=== PATIENT | male | born 1995 | race Caucasian/White ===

== ENCOUNTER → 2018-11-07 | Outpatient (CLI) | payer OTHER, SELFPAY ==
--- NOTE | 2018-11-07 09:18 | RAD_ITS ---
STUDY: X-RAY - RIGHT KNEE REASON FOR EXAM: Male, 23 years old. Pain in the right knee. History of Harry Colbert disease. TECHNIQUE: Floor view(s) of the knee. COMPARISON: None. FINDINGS: Normal visualized distal femur. Irregular multifocal apophysis of the anterior tibial tubercle with overlying soft tissue prominence. Normal proximal tibiofibular articulation. Normal medial femorotibial compartment. Normal lateral femorotibial compartment. Normal patellofemoral articulation. There is no demonstrated joint effusion. The soft tissue structures are unremarkable. 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 No additional abnormal bone or joint findings. Electronically Signed: Li Ann MD at 20:14 EDT , Service support ,
== END | disposition home or self-care (01) ==
PROVIDERS: Family Provider Family Medicine; PCP Family Medicine; Referring Provider Family Medicine; Visit Provider Family Medicine
DX: M25.561 Pain in right knee (principal)
CPT/HCPCS: 73564

== ENCOUNTER → 2018-11-08 | Outpatient (CLI) | payer OTHER, SELFPAY ==
[2018-11-08 10:48] LABS: Anion Gap 6 (5-15); BUN 16 mg/dL (7-18); BUN/Creat Ratio 13.1 RATIO (10-20); Calcium,Total 8.9 mg/dL (8.5-10.1); Chloride 107 mmol/L (98-107); Cholesterol 182 mg/dL (200); Creatinine, Serum 1.22 mg/dL (0.70-1.30); EST Glomerular Filtration Rate 77 mL/min (>60); Est Glom Filt Rate - Afr Amer 94 mL/min (>60); Glucose 88 mg/dL (74-106); High Density Lipoprotein 57 mg/dL; Potassium 4.2 mmol/L (3.5-5.1); Sodium Level 140 mmol/L (136-145); Triglycerides 95 mg/dL; Very Low Density Lipoprotein 19 mg/dL (5-40)
== END | disposition home or self-care (01) ==
LOC: LAB 09:18
PROVIDERS: Family Provider Family Medicine; PCP Family Medicine; Referring Provider Family Medicine; Visit Provider Family Medicine
DX: Z13.220 Encounter for screening for lipoid disorders (principal)
CPT/HCPCS: 36415; 80048; 80061

== ENCOUNTER 2019-01-08 17:30 | Outpatient (RCR) | payer OTHER, SELFPAY ==
--- NOTE | 2018-11-28 11:55 | HP.PTEVAL ---
Patient's Visit Information KATE MIRELES is a 23 year old M referred to Physical Therapy by Yaya Mcgowan MD with a diagnosis of JOHANNA SCHLATTER DISEASE. Date of Evaluation: 11/27/18 Physical Therapist: Sanford Meade PT, Cert MDT, OCS - Visit Plan Frequency: 2x /Week Duration: 4 Weeks Plan: PT INTERNETIONS MODALTITIES ,FOAM ROLLING,HIP FLXORS /QUADS/,FLEXABLITY QUADS/HIP FLEXORS,ECCENTRICS QUADS ,BIKLE - Subjective Findings: This 23 y/o male presents to physical therapy with knee pain.Patient has h/o [place]-schatter disease. Patient developed knee pain about 6 months. Patient noticed more pain with squatting with weight training. Patient aggravating symptoms with stairs ,kneeling,sqautting . Patient denies parathesia/tingling. Patient sleeping okay at night. Patient pain in affects QOL and functional tasks. SOCAIL: single. HOBBIES : snowboarding ,lifting. VOCATION: [employer] - Objective POSTURE: WFL. PALAPTION: GREATER TUBERBOSITY. GAIT: reciprocal pattern. NEURO: intact. AROM: supine knee flexion 0-120 L,R 0-130 degrees. MMT: quads/hams/hip 4/5,ankle 5/5. FLEXABILITY: hams min/mod tight,quads/hip flexors mod tight - Goals Goal 1:: Pateint to be Independant with HEP Goal Time Frame: 4-6 Weeks Goal 2:: Patient decrease right knee pain by 75% or > to improve function Goal Time Frame: 4-6 Weeks Goal 3:: Patient improve flexablity quads/hip flexion mod tight to improve function Goal Time Frame: 4-6 Weeks Goal 4:: Pateint improve LFES score by 10 points > to improve fumction. Goal 5:: Patient to return working out without symptoms of pain lowerbody. Goal Time Frame: 4-6 Weeks - Rehabilitation Potential Physical Therapy Diagnosis: This patient has knee pain right with pain very tight quads/hip flexors ,unable to squat ,kneel,paifull with step affects daily activity thus benifit from skilled PT. Rehabilitation Potential: Good - Anticipated Interventions Patient/Client Instruction: Educate patient on: Condition, Plan of Care For the Purpose of:: To decrease pain, To increase ROM, To improve muscle performance and motor function, To increase tolerance to activity/condition/position, To improve ability of physical actions for home/community/work/leisure, To improve health of tissue, To decrease soft tissue restriction, To increase flexibility/ROM, To reduce risk of recurrence Therapeutic Exercise to Include: Strength training, Power training, Balance training, Flexibilty training, Active ROM Comment: HIP/KNEES For the Purpose of:: To decrease pain, To increase ROM, To improve muscle performance and motor function, To improve ability to perform ADL's, To increase tolerance to activity/condition/position, To improve ability of physical actions for home/community/work/leisure, To improve health of tissue, To decrease soft tissue restriction, To increase flexibility/ROM, To improve safety TENS: Yes IF ES: Yes Cryotherapy (ice pack, ice massage): Yes Thermo therapy (hot pack): Yes Ultrasound (thermal/non thermal): Yes For the Purpose of:: To decrease pain, To decrease swelling/inflammation, To increase ROM, To improve nutrient delivery to tissue, To improve health of tissue, To decrease soft tissue restriction Thank you for the opportunity to evaluate your patient. For Medicare and Medicare HMO plans, please review the plan of care and approve it. It will need to be FAXED BACK to us at [phone] for Medicare purposes. For Medicare only, by signing this I certify the plan of care. Please let me know if there are questions or concerns regarding this plan of care. Physician Signature: Date:
--- NOTE | 2019-04-03 13:09 | HP.PTDCNRP_ITS ---
HP - Discharge Summary (1) - Patient Information KATE MIRELES was seen in my office for initial evaluation on 11/27/18. The following Plan of Care was established for this patient: Initial Frequency: 2x /Week Initial Duration: 4 Weeks - Anticipated Interventions Patient/Client Instruction: Educate patient on: Condition, Plan of Care For the Purpose of:: To decrease pain, To increase ROM, To improve muscle perfor orquidea and motor function, To increase tolerance to activity/condition/position, To improve ability of physical actions for home/community/work/leisure, To improve health of tissue, To decrease soft tissue restriction, To increase flexibility/ROM, To reduce risk of recurrence Therapeutic Exercise to Include: Strength training, Power training, Balance training, Flexibilty training, Active ROM For the Purpose of:: To decrease pain, To increase ROM, To improve muscle performance and motor function, To improve ability to perform ADL's, To increase tolerance to activity/condition/position, To improve ability of physical actions for home/community/work/leisure, To improve health of tissue, To decrease soft tissue restriction, To increase flexibility/ROM, To improve safety TENS: Yes IF ES: Yes Cryotherapy (ice pack, ice massage): Yes Thermo therapy (hot pack): Yes Ultrasound (thermal/non thermal): Yes For the Purpose of:: To decrease pain, To decrease swelling/inflammation, To increase ROM, To improve nutrient delivery to tissue, To improve health of tissue, To decrease soft tissue restriction This patient was last seen in our office 01/08/19. Pertinent comments regarding their Physical therapy will appear below: Patient seen for PT for knee pain focus on modified program for strengthening quads/hams/hip,modalities ,foam rolling thus is d/c to home ex's at gym. At this point I will be discontinuing this patient from physical therapy. I would be happy to see this patient again in the future if found appropriate by the physician. Thank you! Sanford Meade, PT, Cert MDT, OCS
== END 2019-01-08 19:00 | disposition home or self-care (01) ==
LOC: PT 17:30
PROVIDERS: Family Provider Family Medicine; PCP Family Medicine; Referring Provider Family Medicine; Visit Provider Family Medicine
DX: M92.50 Unspecified juvenile osteochondrosis of tibia and fibula (principal)
CPT/HCPCS: 97014; 97035; 97110; 97161; G0283

== ENCOUNTER → 2020-04-27 | Outpatient (CLI) | payer OTHER, SELFPAY | END | disposition home or self-care (01) | PROVIDERS: PCP Family Medicine; Referring Provider Nurse Practitioner Adult Health; Visit Provider Nurse Practitioner Adult Health | DX: U07.1 COVID-19 (principal) | CPT/HCPCS: 87635; U0005; U0003 ==

== ENCOUNTER 2020-04-30 18:56 | Inpatient (IN) | payer OTHER, SELFPAY ==
[2020-04-30] VITALS (7 sets, daily range): BP systolic 131–141; BP diastolic 79–94; PULSE 67–77; RESP 13–20; TEMP 36.6–36.9; O2SAT 97–99; BMI 28.0; BMI 27.9
--- NOTE | 2020-04-30 19:03 | ED.RN ---
NO OLD EKGS IN MUSE
--- NOTE | 2020-04-30 19:21 | EKG12_ITS ---
Test Reason : CP Blood Pressure : / mmHG Vent. Rate : 075 BPM Atrial Rate : 075 BPM P-R Int : 136 ms QRS Dur : 100 ms QT Int : 374 ms P-R-T Axes : 024 079 029 degrees QTc Int : 417 ms Normal sinus rhythm with sinus arrhythmia Normal ECG Confirmed by ALEXANDRO ZAYAS, ANDREW ([id number]), editor managing director ANUPAMA MANJARREZ ([id number]) on 05/02/2020 12:23:25 P M Referred By: DEVEN Confirmed By:NJ MC MD
--- NOTE | 2020-04-30 19:22 | ED.VIS.GEN ---
History of Present Illness Chief Complaint: Chest Pain Narrative: 24-year-old male with no significant past medical history presents with concern for right-sided chest pain and congestion. Patient was diagnosed with coronavirus 4 days ago. Patient began having symptoms 7 days ago. States that he is mildly short of breath intermittently. States the pain is sharp in nature. Denies any nausea, vomiting, abdominal pain. Past Medical History - Allergies and Home Meds Allergies/Adverse Reactions: Allergies No Known Allergies Allergy (Verified 04/30/20 18:57) Prior records reviewed: Yes Past Medical History: None Surgical History: no surgical history Lives: With Family Smoking Status: Never smoker Alcohol: None Drugs: None Review of Systems General: Reports: Malaise. Denies: Chills, Fever, Sweats Eyes: Denies: Visual changes - bilaterally, Diplopia ENT: Denies: Rhinorrhea, Sore throat Cardiovascular: Reports: Chest pain. Denies: Palpitations Respiratory: Reports: Cough. Denies: Dyspnea, Dyspnea on exertion Gastrointestinal: Denies: Abdominal pain, Nausea, Vomiting, Diarrhea, Melena, Hematochezia Genitourinary: Denies: Dysuria, Hematuria, Frequency Musculoskeletal: Denies: Back pain, Extremity Pain Skin: Denies: Rash, Wounds Neurological: Denies: Headache, Weakness, Numbness Physical Exam Vital Signs/Narrative: Vital Signs Temp Pulse Resp BP Pulse Ox 04/30/20 18:57 98.3 F 72 20 H 139/91 H 97 Inital Vital Signs reviewed: Yes General: Well nourished, Well developed, No Acute Distress Head: Normocephalic, Atraumatic Eyes: Perrl, EOMI ENT: Moist mucous membranes, No rhinorrhea Neck: Supple, Nontender Cardiovascular: Regular rate, Regular rhythm, No murmurs Respiratory: No distress, CTA bilaterally, Chest nontender Abdomen: Soft, Nontender, Nondistended, Normal bowel sounds Back: Nontender, Normal Inspection Extremities: Nontender, No edema Skin: Normal color, No rash Neurological: Alert, Oriented x3, Cranial nerves II-XII grossly intact, Normal Strength, Normal Sensation Psychological: Normal affect, Normal Mood Diagnostic/Tx/Re-eval Chest X-Ray - ED: 1 View, Read by ED Physician, Read by Radiologist, - - Right pneumothorax. Clinical Impression(s) from Imaging Studies Chest X-Ray 04/30/20 19:28 IMPRESSION: 1. Moderate right pneumothorax, no tension. 2. Possibly viral pneumonia and/or atelectasis in the bases. Electronically Signed: Martha Barnett MD at 19:48 EST Tel , Service support , ADDENDUM: 04/30/202005 IMPRESSION: 1. Moderate right pneumothorax, no tension. 2. Possibly viral pneumonia and/or atelectasis in the bases. N.B. : The above information has been verbally conveyed by Martha Barnett MD to Dr Sukhdev MD, on 04/30/2020 19:59:57 (ET). Electronically Signed: Martha Barnett MD at 19:48 EST Tel , Service support , - Rhythm Strip Rhythm Strip: Sinus Rhythm Rate: 75 Ectopy: None - EKG Initial EKG Interpretation: Sinus Rhythm - Normal sinus rhythm at 75 bpm. [place] interval of 136 ms. QTC of 417 ms. No evidence of ST elevation or depression at this time. - Medical Decision Making Patient appears well and nontoxic. Vital signs within normal limits. No tachycardia or hypoxemia. EKG nonischemic. Chest x-ray shows evidence of right pneumothorax. Patient had 8 Setswana pigtail chest tube placed in the right chest. This was done using Seldinger technique. This was done under sterile conditions. Patient tolerated procedure well. Locally anesthetized with 1% lidocaine without epinephrine. Chest x-ray confirms placement. Patient's initial checks x-ray shows a worsened right pneumothorax. The chest tube was then placed to suction. Repeat chest x-ray shows improving right pneumothorax. Spoke with surgeon Dr. Barnes who is agreeable with admitting the patient with a hospitalist consult. Patient stable at time of admission. Impression: 1. Right pneumothorax 2. COVID 19 Procedures Procedure(s): Right chest thoracostomy. ED Disposition - Plan for ED Patient: Disposition: Acute Care [facility]
--- NOTE | 2020-04-30 19:28 | RAD_ITS ---
We are attempting to reach an attending provider to discuss findings. An addendum with communication details will be sent when the communication is complete. STUDY: X-RAY CHEST REASON FOR EXAM: Male, 24 years old. COVID +, SYMPTOMS STARTED SATURDAY. TODAY C/O SOB, CHEST PAIN. TECHNIQUE: Frontal view of the chest COMPARISON: None. FINDINGS: There is a moderate right pneumothorax with approximately visually estimated volume of 25%. Uncalibrated measurement of the pleural separation line in the apex is 3.8 cm. There is no tension. Left lung is fully inflated. There is mild lower lung opacity, possibly atelectasis versus mild viral pneumonia. There are no pleural effusions, cardiomegaly or pulmonary edema. RAD/Chest 1 View (Portable) IMPRESSION: 1. Moderate right pneumothorax, no tension. 2. Possibly viral pneumonia and/or atelectasis in the bases. Electronically Signed: Martha Barnett MD at 19:48 EST Tel , Service support ,
[2020-04-30] MEDS: fentaNYL 100 MCG/2 ML Ampul IV (20:27)
--- NOTE | 2020-04-30 21:06 | RAD_ITS ---
STUDY: X-RAY CHEST REASON FOR EXAM: Male, 24 years old. CHEST TUBE PLACEMENT. POSITIVE COVID. TECHNIQUE: Single AP portable view of the chest. COMPARISON: Earlier today FINDINGS: Despite the presence of a small caliber right-sided chest tube, the previously noted right pneumothorax is increased in size and now affects approximately 40% of the right hemithorax. There is no mediastinal shift. EKG leads overlie the chest The left lung is clear and expanded. There is no demonstrated pleural abnormality. Normal size heart. Normal mediastinum and umm. Normal visualized pulmonary arteries. Normal visualized aortic arch and descending thoracic aorta. Normal visualized thoracic spine. Normal visualized ribs, clavicles, and shoulders. There is no demonstrated abnormality of the visualized soft tissue structures of the upper abdomen. RAD/Chest 1 View (Portable) IMPRESSION: Despite the presence of a small caliber right-sided chest tube, a previously noted right pneumothorax is increased in size since the previous study. N.B. : The above information has been verbally conveyed by Wicho Hill MD to FLAVIO Blake MD, on 04/30/2020 21:18:38 (ET). Electronically Signed: Wicho Hill MD at 21:19 EST , Service support ,
--- NOTE | 2020-04-30 21:19 | CON.PCM_ITS ---
Reason for Consult Date of Consultation: 04/30/20 Reason for Consultation: medical management for covid History of Present Illness: The patient is a 24 year old M with no signficant PMH who was admitted via the ED on 04/30/2020 with a complaint of right sided chest pain. He was diagnosed with COVID 19 infection 4 days prior to admission, after he started having symptoms 7 days prior to admission. He complained of intermittent shortness of breath and had been coughing profusely. Chest pain was sharp in nature, aggravated by breathing in and out. He had no aggravating or relieving factors. Review of systems were otherwise negative. Vitals were stable, and EKG showed sinus rhythm with rate of 75bpm. CXR done showed a moderate right sided pneumothorax, with left lung being fully inflated, with mild lower lung opacity, possibley atelectasis vs mild viral pneumonia. He had a chest tube passed in the ED, and he was admitted to the surgical service. Hospitalist service was consulted to help with management of COVID.[] Past Medical History Allergies No Known Allergies Allergy (Verified 04/30/20 18:57) Home Medications: Ambulatory Orders Medication Instructions Recorded NK 04/30/20 Surgical History: no surgical history Psychiatric History: No pertinent psych hx Lives: With Family Smoking Status: Never smoker Alcohol: None Drugs: None Review of Systems Constitutional: Denies: Chills, Fever, Malaise, Weakness, Weight Change HEENT: Denies: Head Aches, Sinus Congestion, Sinus Drainage Cardiovascular: Denies: Chest Pressure, Chest Tightness, Edema, Heaviness, Light Headedness, Orthopnea, Palpitations, Paroxysmal Noc. Dyspnea Respiratory: Reports: Shortness of Breath, Shortness of breath at rest, Shortness of breath upon exertion. Denies: Cough, Sputum production Gastrointestinal: Denies: Abdominal Pain, Nausea, Vomiting Genitourinary: Denies: Dysuria Musculoskeletal: Denies: Joint Pain, Joint Tenderness Skin: Denies: Rash, Wounds Neurological: Denies: Numbness, Tingling, Focal weakness Psychiatric: Denies: Anxiety, Depression, Homicidal Ideations, Suicidal Ideations Hematologic/ Lymphatic: Denies: Easy Bruising, Easy Bleeding - Physical Exam Vitals/I&O's: Vital Signs Temp Pulse Resp BP Pulse Ox 98.3 F 67 16 139/94 H 99 04/30/20 18:57 04/30/20 21:07 04/30/20 21:07 04/30/20 21:07 04/30/20 21:07 Oxygen Delivery Method Room Air Weight: 200 lb 13.458 oz Body Mass Index (BMI) 28.0 General: Alert, Oriented x3, Cooperative, No apparent distress HEENT: Atraumatic, PERRLA, EOMI, Normocephalic Oral: Moist Mucosa Neck: Supple, No JVD, Negative Carotid Bruits Lungs: - - breath sounds diminished on the right side. has a right sided pigtail chest tube. Cardiovascular: Regular rate, Regular Rhythm, Normal S1, Normal S2, No murmurs Abdomen: Bowel Sounds Present, Soft, Non Tender, Non-Distended, No Hepato- splenomegaly Extremities: No edema, Capillary Refill Less than 3 Seconds Skin: No rashes, No breakdown Musculoskeletal: No Tenderness to Palpation of Joints or Extremities Lymphatic: No Cervical, Supraclavicular, or Inguinal Adenopathy Neurological: Cranial nerves II-XII grossly intact, Neuro grossly intact, Motor Exam 5/5 strength throughout Psych/Mental Status: Normal Affect, Appropriate, Alert and oriented to time, place, person, mood and affect Assessment/Plan 24 y/o admitted with a complaint of right sided chest pain #RIght sided pneumothorax due to COVID 19 infection * Patient being admitted to surgical service. * Repeat chest x-ray after he had a chest tube placed showed worsening of pneumothorax. However chest tube was not hooked up to suction then and so chest x-ray be repeated after it looked up to suction. * management as per general surgery, the primary service * #COVID 19 infection * says he was diagnosed 4 days ago, though he started having symptoms 7 days ago. * hes currently on room air * will hold off on remdesivir as he is on room air * start on PO decadrone 6mg daily * D dimer was only 0.27 * DVT prophylaxis: lovenox. Thank you for the courtesy of the consult. We will continue to follow with you. Office Visits / Consults: [id number] OP Consult L4
--- NOTE | 2020-04-30 21:30 | RAD_ITS ---
STUDY: X-RAY CHEST REASON FOR EXAM: Male, 24 years old. Shortness of breath, chest tube placement TECHNIQUE: Single AP portable view of the chest. COMPARISON: Earlier today FINDINGS: EKG leads overlie the chest. A previously noted small caliber chest tube in the right hemithorax has been adjusted in position and attached to suction The previously noted right pneumothorax has improved but not yet resolved. Affects approximately 20% of the right hemithorax without mediastinal shift is approximately 3.6 cm of space between the superior edge of the lung and the pleural surface on the previous examination measured 5.6 cm. The left lung is clear and expanded. There is no demonstrated pleural abnormality. Normal size heart. Normal mediastinum and umm. Normal visualized pulmonary arteries. Normal visualized aortic arch and descending thoracic aorta. Normal visualized thoracic spine. Normal visualized ribs, clavicles, and shoulders. There is no demonstrated abnormality of the visualized soft tissue structures of the upper abdomen. RAD/Chest 1 View (Portable) IMPRESSION: Persistent though decreased in size right pneumothorax Electronically Signed: Wicho Hill MD at 21:53 EST , Service support ,
--- NOTE | 2020-04-30 22:38 | PCS.PANDOC ---
PANDEMIC DOCUMENTATION INITIATED: Date: 04/30/20 Time: [id number]
[2020-04-30] MEDS: Acetaminophen 325 MG Tablet 650 MG PO (23:02)
[2020-04-30] MEDS: dexAMETHasone 4 MG Tablet 6 MG PO (23:33)
--- NOTE | 2020-04-30 23:52 | PCM.HP.BLA ---
History and Physical Date of Admission: 04/30/20 Chief Complaint: shortness of breath, cough, COVID positive History of Present Illness: 24 y/o healthy, pleasant WM presents with right pneumothorax. He is known to be COVID positive, has some shortness of breath with this.. Has had cough and then developed chest pain. Presented to ED and found to have right pneumothorax. Past Medical History: denies major medical illnesses Past Surgical History: denies Medications: denies chronic medications Allergies: Has no known drug allergies Social history: TOB use denies Review of Systems: General - denies fevers, has increased tiredness, denies anorexia Cardiovascular has chest pain due to pneumo, denies history of heart attack, Pulmonary see HPI Gastrointestinal denies blood in stools, denies swallowing problems Neurological denies numbness/weakness of extremities, denies seizures Genitourinary denies burning with urination, denies blood in urine Hematological denies spontaneous/prolonged bleeding Skin denies open non healing wounds Musculoskeletal no new muscle/bone pain Endocrine denies diabetes or thyroid problems Psychological denies suicidal ideation, denies hallucinations Physical examination: Vital signs Temp 98.7F HR 70 BP 135/91 RR 20 General WD/WN WM in no apparent distress, alert and oriented, not septic appearing HEENT Normocephalic. EOM intact with sclera clear and no icterus noted. Neck is supple with no jugular venous distention noted. Trachea is midline. Lungs normal respiratory excursion. No labored breathing noted, such as retractions. No cough heard. Heart regular. Abdomen soft and benign. Extremities no pitting edema noted. No obvious deformity noted. Genitourinary/Rectal deferred Skin normal skin integrity. Neurological non focal. Psychological normal affect, patient is calm and appropriate Impression: right pneumothorax, COVID positive Discussion/Plan: Will maintain thoracostomy catheter. Set Atrium device to 20 cm water pressure. Encourage incentive spirometry. Supplemental oxygen to aid in resorption of pneumothorax Pain medications as needed. Will check serial CXR until resolution Consult to internal medicine for assistance in treatment of COVID I have discussed the above with the patient. He acknowledges the above I have answered all questions to the patient?s satisfaction and the patient has no further questions.
[2020-05-01 00:03] LABS: Absolute Neutrophil Count 2.8 X10^3/uL (2.0-7.7); Basophil# 0.02 X10^3/uL; Basophil% 0.3 % (0-1); Eosinophil# 0.19 X10^3/uL; Eosinophils% 3.3 % (0-5); Hematocrit 50.2 % (40-54); Hemoglobin 16.7 g/dL (13.0-16.5); Lymphocyte % 36.3 % (19-41); Mean Corp Hgb Conc 33.3 g/dL (32-36); Mean Corpuscular Volume 87.3 fL (80-94); Mean Platelet Vol. 10.7 fl (6.2-12.0); Monocyte# 0.63 X10^3/uL; Monocyte% 10.9 % (0-10); NRBC Flagged by Analyzer 0 % (0-5); Neutrophil # 2.79 X10^3/uL (2.7-7.7); Neutrophil % 48.3 % (47-70); Platelet Count 191 K/mm3 (150-450); RBC Distribution Width CV 12.1 % (11.6-14.6); RBC Distribution Width SD 39.4 fl (35.1-43.9); Red Blood Count 5.75 M/mm3 (4.6-6.2); White Blood Count 5.8 K/mm3 (4.4-11.0)
[2020-05-01 00:22] LABS: Anion Gap 4 (5-15); BUN 10 mg/dL (7-18); BUN/Creat Ratio 8.5 RATIO (10-20); Calcium,Total 8.9 mg/dL (8.5-10.1); Chloride 102 mmol/L (98-107); Creatinine, Serum 1.17 mg/dL (0.70-1.30); EST Glomerular Filtration Rate 80 mL/min (>60); Est Glom Filt Rate - Afr Amer 97 mL/min (>60); Glucose 111 mg/dL (74-106); Sodium Level 137 mmol/L (136-145)
[2020-05-01 00:32] LABS: Procalcitonin 0.05 ng/mL (0.00-0.09)
[2020-05-01 02:20] LABS: D-Dimer Quantitative (DVT/PE) < 0.27 FEU/ug/m (0.27-0.49)
[2020-05-01 03:44] LABS: CRP < 2.90 mg/L (0.0-3.0); LDH 192 U/L (87-241)
[2020-05-01 04:17] VITALS: BP 123/63; PULSE 69; RESP 18; TEMP 36.6; O2SAT 99
--- NOTE | 2020-05-01 05:55 | RAD_ITS ---
STUDY: X-RAY CHEST REASON FOR EXAM: Male, 24 years old patient presents for follow-up of a pneumothorax. Patient is COVID positive. TECHNIQUE: Single AP portable view of the chest. COMPARISON: 04/30/2020. FINDINGS: Small caliber thoracostomy tube is visible on the right. The lungs are clear and expanded. There is decreased size of the right-sided pneumothorax with estimated size now approximately 12 mm. Normal size heart. Normal mediastinum and umm. Normal visualized pulmonary arteries. Normal visualized aortic arch and descending thoracic aorta. Normal visualized thoracic spine. Normal visualized ribs, clavicles, and shoulders. There is no demonstrated abnormality of the visualized soft tissue structures of the upper abdomen. RAD/Chest 1 View (Portable) IMPRESSION: Decreased size of the right-sided pneumothorax. Electronically Signed: Terrie Waters MD at 8:06 EST , Service support ,
--- NOTE | 2020-05-01 07:15 | PCM.PN.HOSP ---
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 Patient admitted to the medical surgical Covid floor, chest tube placed per ED with serial follow-up lung plain films with ongoing improvement following initiation of continued suction, general surgery primary motors and per their report we will plan potentially repeat film AM and if improving possible transition to waterseal, encourage ambulation while still preserving appropriate chest tube placement, encourage incentive spirometry, maintained on 2 L nasal cannula given this presentation, as needed pain regimen per surgery discretion. Most recent follow-up chest x-ray this afternoon with decreasing size of the right-sided pneumothoraces. CBC unremarkable, d-dimer < 0.027, BMP with glucose 111, LDH 192, CRP < 2.90, procalcitonin 0.05, admission CXR with moderate right sided PTX with no tension, evidence COVID PNA findings. Will maintain on oxygen with wean as tolerated to room air, PRN albuterol, HOB, IS parameters, judicious hydration, closely monitor for worsening status for ARDS and multiorgan failure, continued on oral decadron x 10 doses initiated upon patient admission, given status deferred remdesivir. SCDs, Lovenox given #2 as increased clotting risk, D-dimer normal currently, given history may benefit at discharge from consideration daily baby aspirin. Patient overnight with improvement since initial presentation, less dyspnea and less and pleuritic pain although he still does have some with deep inspiratory effort and notes also right-sided back discomfort. He said he has felt the sensation of a bubbling to the right side of his chest as his lung reexpanded. Patient currently on 20 cm suction. Discussed plan of care with patient with reevaluation per general surgery with repeat chest x-ray in a.m. and if further improvement planned likely waterseal transition. Discussed patient current presentation, living with his family and given timeline recommended continued caution with strong recommendation to appropriately maintain these parameters as patient did note he had an upcoming ski trip with the following Saturday. Patient denies fevers, chills, nausea, emesis, abdominal pain. Objective: Physical Examination: General: awake, alert, oriented x 3 and cooperative, seated upright in the [facility] surgical bed, mildly fatigued otherwise no acute distress, notes discomfort to the right side of the chest has improved. Skin: normal color, turgor, no icterus, cyanosis. HEENT: AT/NC, EOMI, PERRLA, MMM. Lungs: Diminished breath sounds, greater bases, moderate effort, right-sided chest tube in place to suction, no rales, ronchi or wheezing. Heart: Regular rate and rhythm; no gallop, rub audible. Abdomen: soft, NTTP, ND, normal BS. Extremities: no cyanosis, clubbing, or edema. Neurological: patient awake, alert, oriented x 3; cognitive function intact; pupils equally reactive to light and accomodation; cranial nerves II-XII grossly normal, moving all 4 extremities, no focal deficits, strength mildly to moderately global decrease secondary to acute presentation and presence of chest tube to the right side. Psychiatric: affect appears Benji otherwise normal, no acute evidence of depressive or anxiety feelings. Vitals/I&O's: Vital Signs Temp Pulse Resp BP Pulse Ox 97.8 F 69 18 123/63 H 99 05/01/20 04:17 05/01/20 04:17 05/01/20 04:17 05/01/20 04:17 05/01/20 04:17 Oxygen Flow Rate (L/min) 2 Oxygen Delivery Method Nasal Cannula Weight: 200 lb 9.93 oz Body Mass Index (BMI) 27.9 Intake and Output for Last 24 Hours 04/29/20 04/30/20 05/01/20 23:59 23:59 23:59 Intake Total 120 / 120 240 / 240 Balance 120 / 120 240 / 240 Laboratory Results 04/30/20 23:50: D-Dimer Quant (PE/DVT) < 0.27 L 04/30/20 23:50: Lactate Dehydrogenase 192, C-React Prot Ext Range < 2.90 04/30/20 23:50: Procalcitonin 0.05 04/30/20 23:50: WBC 5.8, RBC 5.75, Hgb 16.7 H, Hct 50.2, MCV 87.3, MCH 29.0, MCHC 33.3, RDW Std Deviation 39.4, RDW Coeff of Carmen 12.1, Plt Count 191, MPV 10.7, Immature Gran % (Auto) 0.900, Neut % (Auto) 48.3, Lymph % (Auto) 36.3, [place] % (Auto) 10.9 H, Eos % (Auto) 3.3, Baso % (Auto) 0.3, Absolute Neuts (auto) 2.8, Absolute Lymphs (auto) 2.10, Nucleated RBC % 0 04/30/20 23:50: Sodium 137, Potassium 4.0, Chloride 102, Carbon Dioxide 31.0, Anion Gap 4 L, BUN 10, Creatinine 1.17, Estim Creat Clear Calc 102.80, Est GFR (MDRD) Af Amer 97, Est GFR (MDRD) Non-Af 80, BUN/Creatinine Ratio 8.5 L, Glucose 111 H, Calcium 8.9 Current Medications Acetaminophen (Acetaminophen 325 Mg Tablet) 650 mg PO Q6H PRN PRN PRN Reason: Pain Score 1-3 Last Admin: 04/30/20 23:02 Dose: 650 mg Documented by: Dexamethasone (Dexamethasone 4 Mg Tablet) 6 mg PO DAILY [facility] Enoxaparin Sodium (Enoxaparin 30 Mg/0.3 Ml Syringe) 30 mg SC BID [facility] Lactated Ringer's () 1,000 mls @ 15 mls/hr IV .Q48H [facility] Last Admin: 04/30/20 23:03 Dose: Not Given Documented by: Sodium Chloride () 250 mls @ 15 mls/hr IV .[id number] PRN PRN Reason: Saline Flush Sodium Chloride (0.9% Saline Lock 10 Ml Syringe) 10 - 40 ml IV UD PRN PRN Reason: SALINE FLUSH Tramadol HCl (Tramadol 50 Mg Tablet) 50 mg PO Q3H PRN PRN PRN Reason: Pain Score 4-10 STROKE Vital Signs/Narrative: Vital Signs Temp Pulse Resp BP Pulse Ox 05/01/20 04:17 97.8 F 69 18 123/63 H 99 Medical Necessity - Tobacco Use Smoking Status: Never smoker Tobacco Use: Non-smoker Assessment/Plan The patient is a 24 y/o M w/ no PMHx, 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 1. Acute right-sided pneumothoraces secondary to likely #2: Patient admitted to the medical surgical Covid floor, chest tube placed per ED with serial follow-up lung plain films with ongoing improvement following initiation of continued suction, general surgery primary motors and per their report we will plan potentially repeat film AM and if improving possible transition to waterseal, encourage ambulation while still preserving appropriate chest tube placement, encourage incentive spirometry, maintained on 2 L nasal cannula given this presentation, as needed pain regimen per surgery discretion. Most recent follow-up chest x-ray this afternoon with decreasing size of the right-sided pneumothoraces. 2. BL Pneumonia secondary to Acute Viral Syndrome, COVID-19 with associated #1 presentation: CBC unremarkable, d-dimer < 0.027, BMP with glucose 111, LDH 192, CRP < 2.90, procalcitonin 0.05, admission CXR with moderate right sided PTX with no tension, evidence COVID PNA findings. Will maintain on oxygen with wean as tolerated to room air, PRN albuterol, HOB, IS parameters, judicious hydration, closely monitor for worsening status for ARDS and multiorgan failure, continued on oral decadron x 10 doses initiated upon patient admission, given status deferred remdesivir. 3. DVT prophylaxis: SCDs, Lovenox given #2 as increased clotting risk, D-dimer normal currently, given history may benefit at discharge from consideration daily baby aspirin. OBSV E&M: [id number] Subsequent observation care L2
[2020-05-01 09:23] VITALS: BP 126/79; PULSE 67; RESP 16; TEMP 36.4; O2SAT 100
[2020-05-01] MEDS: dexAMETHasone 4 MG Tablet 6 MG PO (09:31)
[2020-05-01] MEDS: Enoxaparin 30 MG/0.3 ML Syringe SC ×2 (09:32→19:56)
[2020-05-01] MEDS: traMADol 50 MG Tablet PO ×2 (11:42→19:56)
--- NOTE | 2020-05-01 12:04 | PN.SURG_ITS ---
Subjective: patient feeling overall well, with appropriate pleuritic pain - Physical Exam Vitals/I&O's: Vital Signs Temp Pulse Resp BP Pulse Ox 97.6 F L 67 16 126/79 H 100 05/01/20 09:23 05/01/20 09:23 05/01/20 09:23 05/01/20 09:23 05/01/20 09:23 Oxygen Flow Rate (L/min) 2 Oxygen Delivery Method Nasal Cannula Weight: 91 kg Body Mass Index (BMI) 27.9 Intake and Output for Last 24 Hours 04/29/20 04/30/20 05/01/20 23:59 23:59 23:59 Intake Total 120 / 120 240 / 240 Balance 120 / 120 240 / 240 General: Alert, Oriented x3 HEENT: Atraumatic Oral: Moist Mucosa Neck: Supple Lungs: Normal air movement Abdomen: Soft Laboratory Results 04/30/20 23:50: D-Dimer Quant (PE/DVT) < 0.27 L 04/30/20 23:50: Lactate Dehydrogenase 192, C-React Prot Ext Range < 2.90 04/30/20 23:50: Procalcitonin 0.05 04/30/20 23:50: WBC 5.8, RBC 5.75, Hgb 16.7 H, Hct 50.2, MCV 87.3, MCH 29.0, MCHC 33.3, RDW Std Deviation 39.4, RDW Coeff of Carmen 12.1, Plt Count 191, MPV 10.7, Immature Gran % (Auto) 0.900, Neut % (Auto) 48.3, Lymph % (Auto) 36.3, [place] % (Auto) 10.9 H, Eos % (Auto) 3.3, Baso % (Auto) 0.3, Absolute Neuts (auto) 2.8, Absolute Lymphs (auto) 2.10, Nucleated RBC % 0 04/30/20 23:50: Sodium 137, Potassium 4.0, Chloride 102, Carbon Dioxide 31.0, Anion Gap 4 L, BUN 10, Creatinine 1.17, Estim Creat Clear Calc 102.80, Est GFR (MDRD) Af Amer 97, Est GFR (MDRD) Non-Af 80, BUN/Creatinine Ratio 8.5 L, Glucose 111 H, Calcium 8.9 Current Medications Acetaminophen (Acetaminophen 325 Mg Tablet) 650 mg PO Q6H PRN PRN PRN Reason: Pain Score 1-3 Last Admin: 04/30/20 23:02 Dose: 650 mg Documented by: Dexamethasone (Dexamethasone 4 Mg Tablet) 6 mg PO DAILY [facility] Last Admin: 05/01/20 09:31 Dose: 6 mg Documented by: Enoxaparin Sodium (Enoxaparin 30 Mg/0.3 Ml Syringe) 30 mg SC BID [facility] Last Admin: 05/01/20 09:32 Dose: 30 mg Documented by: Lactated Ringer's () 1,000 mls @ 15 mls/hr IV .Q48H [facility] Last Admin: 04/30/20 23:03 Dose: Not Given Documented by: Sodium Chloride () 250 mls @ 15 mls/hr IV .[id number] PRN PRN Reason: Saline Flush Sodium Chloride (0.9% Saline Lock 10 Ml Syringe) 10 - 40 ml IV UD PRN PRN Reason: SALINE FLUSH Tramadol HCl (Tramadol 50 Mg Tablet) 50 mg PO Q3H PRN PRN PRN Reason: Pain Score 4-10 Last Admin: 05/01/20 11:42 Dose: 50 mg Documented by: Medical Necessity - Tobacco Use Smoking Status: Never smoker Tobacco Use: Non-smoker Assessment/Plan Impression: right pneumothorax COVID Discussion/Plan: CXR this morning still shows small pocket of air - continue 20 cm suction on catheter, supplemental oxygen, incentive spirometry - will repeat CXR around noon to check on status, then may consider water seal encourage ambulation within limitations pain medications available
[2020-05-01 12:05] VITALS: O2SAT 100
--- NOTE | 2020-05-01 12:35 | RAD_ITS ---
STUDY: X-RAY CHEST REASON FOR EXAM: Male, 24 years old. RECHECK PNEUMO. HX RT PNEUMOTHORAX, COVID (+) TECHNIQUE: Single frontal view of the chest. COMPARISON: 05/29/2020 FINDINGS: Small caliber chest tube unchanged in position peripheral lung field mid lung on the right. Side holes may be outside the chest cavity. No subcutaneous gas however. The lungs are clear and expanded. Small right apical pneumothorax unchanged. Normal size heart. Normal mediastinum and umm. Normal visualized pulmonary arteries. Normal visualized aortic arch and descending thoracic aorta. Normal visualized thoracic spine. Normal visualized ribs, clavicles, and shoulders. There is no demonstrated abnormality of the visualized soft tissue structures of the upper abdomen. RAD/Chest 1 View (Portable) IMPRESSION: Small stable right apical pneumothorax and chest tube as above. Electronically Signed: Jacob Pierce MD at 19:35 EST , Service support ,
[2020-05-01 15:36] VITALS: BP 115/65; PULSE 69; RESP 16; TEMP 36.6; O2SAT 98
--- NOTE | 2020-05-01 16:02 | CPS ---
Per doctor mckenzie, patient to be on O2 due to pneumo.
[2020-05-01 21:15] VITALS: BP 131/69; PULSE 63; RESP 16; TEMP 36.6; O2SAT 100
--- NOTE | 2020-05-01 22:57 | NURSING ---
Chest tube dressing changed with chloraprep cleanse, vaseline gauze, occlusive split gauze, abd, and occlusive nylon tape to secure. Prior to dressing change, pt had c/o pain to right shoulder blade. Upon palpation, felt an area of approximately 4cm in length of possible trapped air. After dressing change, pt stated relief of discomfort.
[2020-05-02] VITALS (10 sets, daily range): BP systolic 105–134; BP diastolic 56–81; PULSE 56–71; RESP 16–20; TEMP 36.3–36.9; O2SAT 97–100
--- NOTE | 2020-05-02 05:55 | RAD_ITS ---
STUDY: X-RAY CHEST REASON FOR EXAM: Male, 24 years old. PNEUMOTHORAX TECHNIQUE: Single AP portable view of the chest. COMPARISON: 05/01/2020 FINDINGS: Right-sided small bore thoracostomy tube which is unchanged with no change in the small apical right pneumothorax. The lungs are clear and expanded. Normal size heart. Normal mediastinum and umm. Normal visualized pulmonary arteries. Normal visualized aortic arch and descending thoracic aorta. Normal visualized thoracic spine. Normal visualized ribs, clavicles, and shoulders. There is no demonstrated abnormality of the visualized soft tissue structures of the upper abdomen. RAD/Chest 1 View (Portable) IMPRESSION: No change in right-sided small bore thoracostomy tube with small apical pneumothorax. Electronically Signed: Bill Delgado MD at 8:35 EST Tel , Service support ,
[2020-05-02] MEDS: Enoxaparin 30 MG/0.3 ML Syringe SC ×2 (07:59→21:28)
[2020-05-02] MEDS: dexAMETHasone 4 MG Tablet 6 MG PO (07:59)
--- NOTE | 2020-05-02 09:10 | PCM.PN.SRG ---
Subjective: patient doing well - Physical Exam Vitals/I&O's: Vital Signs Temp Pulse Resp BP Pulse Ox 98.0 F 60 18 120/81 H 99 05/02/20 07:51 05/02/20 07:53 05/02/20 07:51 05/02/20 07:51 05/02/20 07:51 Oxygen Flow Rate (L/min) 2 Oxygen Delivery Method Nasal Cannula Weight: 91 kg Body Mass Index (BMI) 27.9 Intake and Output for Last 24 Hours 04/30/20 05/01/20 05/02/20 23:59 23:59 23:59 Intake Total 120 / 120 240 / 960 720 / 720 Balance 120 / 120 240 / 960 720 / 720 General: Alert, Oriented x3 HEENT: Atraumatic Oral: Moist Mucosa Neck: Supple Lungs: Normal air movement Current Medications Acetaminophen (Acetaminophen 325 Mg Tablet) 650 mg PO Q6H PRN PRN PRN Reason: Pain Score 1-3 Last Admin: 04/30/20 23:02 Dose: 650 mg Documented by: Dexamethasone (Dexamethasone 4 Mg Tablet) 6 mg PO DAILY [facility] Last Admin: 05/02/20 07:59 Dose: 6 mg Documented by: Enoxaparin Sodium (Enoxaparin 30 Mg/0.3 Ml Syringe) 30 mg SC BID [facility] Last Admin: 05/02/20 07:59 Dose: 30 mg Documented by: Lactated Ringer's () 1,000 mls @ 15 mls/hr IV .Q48H [facility] Last Admin: 04/30/20 23:03 Dose: Not Given Documented by: Sodium Chloride () 250 mls @ 15 mls/hr IV .[id number] PRN PRN Reason: Saline Flush Sodium Chloride (0.9% Saline Lock 10 Ml Syringe) 10 - 40 ml IV UD PRN PRN Reason: SALINE FLUSH Tramadol HCl (Tramadol 50 Mg Tablet) 50 mg PO Q3H PRN PRN PRN Reason: Pain Score 4-10 Last Admin: 05/01/20 19:56 Dose: 50 mg Documented by: Medical Necessity - Tobacco Use Smoking Status: Never smoker Tobacco Use: Non-smoker Assessment/Plan Impression: right pneumothorax COVID Discussion/Plan: CXR this morning still shows small pocket of air I checked this morning and there was no suction on the pleurevac device because it was connected to a receptacle in nasogastric tube fashion, so that the tubing connected to the pleurevac had no suction I hooked it all back up and rerouted the tubing so that there was suction to the pleurevac, will repeat CXR if still pneumo will place new catheter pain medications available
--- NOTE | 2020-05-02 09:15 | RAD_ITS ---
STUDY: X-RAY CHEST REASON FOR EXAM: Male, 24 years old. pneumothorax F/U TECHNIQUE: Single AP portable view of the chest. COMPARISON: 05/02/2020 at 04 35 FINDINGS: Right-sided small bore thoracostomy tube with no change in small apical right pneumothorax. The lungs are clear and expanded. There is no demonstrated pleural abnormality. Normal size heart. Normal mediastinum and umm. Normal visualized pulmonary arteries. Normal visualized aortic arch and descending thoracic aorta. Normal visualized thoracic spine. Normal visualized ribs, clavicles, and shoulders. There is no demonstrated abnormality of the visualized soft tissue structures of the upper abdomen. RAD/Chest 1 View (Portable) IMPRESSION: No change in right-sided small bore thoracostomy tube with a small apical pneumothorax. Electronically Signed: Bill Delgado MD at 9:39 EST Tel , Service support ,
--- NOTE | 2020-05-02 09:31 | PN_ITS ---
Subjective: Chief complaint: Follow-up after admission for acute right spontaneous pneumothorax and acute bilateral COVID-19 pneumonia. Patient seen and examined. No acute events overnight. Today, is feeling good, no significant shortness of breath. Denied cough or sputum production. Repeat chest x-ray revealed slightly worsening right pneumothorax. His vital signs are stable. - Physical Exam Vitals/I&O's: Vital Signs Temp Pulse Resp BP Pulse Ox 98.0 F 60 18 120/81 H 99 05/02/20 07:51 05/02/20 07:53 05/02/20 07:51 05/02/20 07:51 05/02/20 07:51 Oxygen Flow Rate (L/min) 2 Oxygen Delivery Method Nasal Cannula Weight: 200 lb 9.93 oz Body Mass Index (BMI) 27.9 Intake and Output for Last 24 Hours 04/30/20 05/01/20 05/02/20 23:59 23:59 23:59 Intake Total 120 / 120 240 / 960 720 / 720 Balance 120 / 120 240 / 960 720 / 720 General: Alert, Oriented x3, Cooperative, No apparent distress HEENT: Atraumatic, PERRLA, EOMI, Normocephalic Oral: Moist Mucosa, No Gingival or Mucosal Lesions/ Ulcerations Neck: Supple, No JVD, Negative Carotid Bruits, Trachea Midline, Thyroid Normal Size and Texture Lungs: Clear to auscultation, No rhonchi, No wheeze, No rales, Diminished Cardiovascular: Regular rate, Regular Rhythm, Normal S1, Normal S2, PMI Normal Abdomen: Bowel Sounds Present, Soft, Non Tender, Non-Distended, No Hepato- splenomegaly Extremities: No clubbing, No cyanosis, No edema Skin: No rashes, No breakdown Lymphatic: No Cervical, Supraclavicular, or Inguinal Adenopathy Neurological: Cranial nerves II-XII grossly intact, Neuro grossly intact Psych/Mental Status: Normal Affect, Appropriate, Alert and oriented to time, place, person, mood and affect Current Medications Acetaminophen (Acetaminophen 325 Mg Tablet) 650 mg PO Q6H PRN PRN PRN Reason: Pain Score 1-3 Last Admin: 04/30/20 23:02 Dose: 650 mg Documented by: Dexamethasone (Dexamethasone 4 Mg Tablet) 6 mg PO DAILY [facility] Last Admin: 05/02/20 07:59 Dose: 6 mg Documented by: Enoxaparin Sodium (Enoxaparin 30 Mg/0.3 Ml Syringe) 30 mg SC BID [facility] Last Admin: 05/02/20 07:59 Dose: 30 mg Documented by: Lactated Ringer's () 1,000 mls @ 15 mls/hr IV .Q48H [facility] Last Admin: 04/30/20 23:03 Dose: Not Given Documented by: Sodium Chloride () 250 mls @ 15 mls/hr IV .[id number] PRN PRN Reason: Saline Flush Sodium Chloride (0.9% Saline Lock 10 Ml Syringe) 10 - 40 ml IV UD PRN PRN Reason: SALINE FLUSH Tramadol HCl (Tramadol 50 Mg Tablet) 50 mg PO Q3H PRN PRN PRN Reason: Pain Score 4-10 Last Admin: 05/01/20 19:56 Dose: 50 mg Documented by: Medical Necessity - Tobacco Use Smoking Status: Never smoker Tobacco Use: Non-smoker Assessment/Plan This is a 24 years old male patient presented to the emergency room because of right-sided chest pain, found to have acute spontaneous right pneumothorax and he was diagnosed with COVID-19 few days before admission. #1 acute right spontaneous pneumothorax: Status post chest tube insertion. Repeat chest x-ray revealed persistent small right apical pneumothorax. General surgeon on the case. Respiratory status stable, other vitals are stable. Routine blood work was unremarkable. Plan to continue suction through the chest tube, repeat chest x-ray tomorrow morning. #2 acute bilateral COVID-19 pneumonia: He is on p.o. dexamethasone. Currently, he is on 2 L of oxygen and pulse ox is 99%. Denied worsening shortness of breath, denied fever or chills. Plan to continue same treatment. #3 DVT prophylaxis: Subcu Lovenox twice daily. This note was generated with [employer] dictation software. It may contain incorrect words, spelling, and punctuation that were not noted in checking the note before signing. Inpatient E&M: 39425 Subs Hosp L2
[2020-05-02] MEDS: Lidocaine 1% (20 ml mdv) 20 ML Vial INFILT (11:41)
[2020-05-02] MEDS: fentaNYL 100 MCG/2 ML Ampul IV (11:42)
[2020-05-02] MEDS: Midazolam 5 MG/ML Syringe IV (11:43)
--- NOTE | 2020-05-02 12:16 | RAD_ITS ---
STUDY: X-RAY CHEST REASON FOR EXAM: Male, 24 years old. CHEST TUBE PLACEMENT TECHNIQUE: Single AP portable view of the chest. COMPARISON: Earlier today FINDINGS: Small caliber right-sided chest tube has been placed into the apex of the right hemithorax. Previously noted pneumothorax has resolved or nearly completely resolved. The lungs are otherwise clear and expanded. There is no demonstrated pleural abnormality. Normal size heart. Normal mediastinum and umm. Normal visualized pulmonary arteries. Normal visualized aortic arch and descending thoracic aorta. Normal visualized thoracic spine. Normal visualized ribs, clavicles, and shoulders. There is no demonstrated abnormality of the visualized soft tissue structures of the upper abdomen. RAD/Chest 1 View (Portable) IMPRESSION: Insertion of a small caliber right-sided chest tube, previously noted right apical pneumothorax has either resolved or nearly completely resolved. No superimposed acute pulmonary process Electronically Signed: Wicho Hill MD at 13:04 EST , Service support ,
--- NOTE | 2020-05-02 12:26 | OP.PCM_ITS ---
Report of Operation Date of Procedure: 05/02/20 Pre-Operative Diagnosis: right pneumothorax, persistent Post-Operative Diagnosis: same Surgery/Procedure Performed:: placement of right pleural catheter Description of Surgical Findings:: pending CXR Type of Anesthesia:: IV Sedation - 4 mg versed and 50 micrograms of fentanyl and 20 ml 1% xylocaine with epinephrine Anesthesiologist: Lori Barnes Specimen's removed: none Estimated Blood Loss (mL): minimal Fluids Replaced: none Description of Procedure: After informed consent was given, patient was placed in supine position Appropriate time out protocol was followed. Patient was given IV conscious sedation. Right chest area was palpated for landmarks and area anteriorly at third rib level was chosen for site of insertion. The skin and subcutaneous tissues were infiltrated with local anesthetic. A small yasmine was made with an 11 blade scalpel at the appropriate site. The pleural catheter was then directed, slightly tunneled over the rib into the pleural space which was ascertained by aspiration of air. The catheter was then threaded into the pleural space. It was then connected to the Atrium device according to payable processor's guidelines. It was set to 20 cm suction by the Atrium device There was evacuation of air noted by bubbling. The catheter was sutured to the skin. Sterile dressing was applied. Patient tolerated procedure well. - Complications none noted - Admit VTE Documentation VTE Present on Admission: Yes VTE Mechan Device Prophylaxis: SCD's
[2020-05-02] MEDS: traMADol 50 MG Tablet PO (13:55)
[2020-05-02] MEDS: Morphine 2 MG/ML Syringe IV (15:09)
[2020-05-02] MEDS: 0.9% Saline Lock 10 ML Syringe IV (15:10)
--- NOTE | 2020-05-02 15:33 | NURSING ---
called Lyssa pt's mother: gave her an update regarding c/o pain, nurse stated she doesn't know what is causing the pain, but I want to manage his pain. Informed that Dr Barnes has been notified and will come see pt after office hours. Pt's oxygen level is 100%, no sob, and lung sounds improved since this am and chest xray has also improved. (will talk to Dr. Barnes regarding consulting deli associate when she comes to assess pt..Left this on her voicemail.) Lyssa thanked me for calling her and for what I am doing for her son.
--- NOTE | 2020-05-02 16:22 | NURSING ---
Dr. Barnes in pt's room assessing pt now.
[2020-05-02] MEDS: HYDROcodone Bitartrate/Apap 5/325 Tablet PO (17:11)
[2020-05-02] MEDS: cycloBENZAPRine HCl 10 MG Tablet PO (17:12)
--- NOTE | 2020-05-02 18:31 | NURSING ---
1830 received patient at 1830 in ICU report received benjie Moran RN assuming care of patient at 183
--- NOTE | 2020-05-02 19:05 | NURSING ---
1830 Report given to Carie ANTOINE in ICU. 1844 Explained to pt he will be transferred to ICU, not because his condition has changed but due this floor is closing. Verbalized understanding.
[2020-05-03 02:00] VITALS: BP 129/61; PULSE 70; RESP 20; TEMP 36.1; O2SAT 98
--- NOTE | 2020-05-03 05:55 | RAD_ITS ---
STUDY: X-RAY CHEST REASON FOR EXAM: Male, 24 years old. Rt sided pneumothorax TECHNIQUE: Single AP portable view of the chest. COMPARISON: Comparison is made with prior study dated May 02 at 12:36 PM. FINDINGS: Once again, a small caliber chest tube is in situ with the tip in the right lateral lung apex. There is no evidence of pneumothorax. The lungs are clear and expanded. There is no demonstrated pleural abnormality. Normal size heart. Normal mediastinum and umm. Normal visualized pulmonary arteries. Normal visualized aortic arch and descending thoracic aorta. Normal visualized thoracic spine. Normal visualized ribs, clavicles, and shoulders. There is no demonstrated abnormality of the visualized soft tissue structures of the upper abdomen. RAD/Chest 1 View (Portable) IMPRESSION: Small caliber chest tube is seen with the tip in the right lateral lung apex. There is no evidence of pneumothorax. Electronically Signed: Jose Alexandra MD at 8:15 EST , Service support ,
[2020-05-03 07:00] VITALS: O2SAT 98
--- NOTE | 2020-05-03 07:58 | PCM.PN.SRG ---
Subjective: patient tolerating pleuritic pain, he states that he didn't have this with first tube doing incentive spirometry well - Physical Exam Vitals/I&O's: Vital Signs Temp Pulse Resp BP Pulse Ox 97.0 F L 70 20 H 129/61 H 98 05/03/20 02:00 05/03/20 02:00 05/03/20 02:00 05/03/20 02:00 05/03/20 07:00 Oxygen Flow Rate (L/min) [6] 2 Oxygen Flow Rate (L/min) [5] 2 Oxygen Flow Rate (L/min) [4] 2 Oxygen Flow Rate (L/min) [3] 2 Oxygen Flow Rate (L/min) [2] 2 Oxygen Flow Rate (L/min) [1 ( 2 Initial Baseline)] Oxygen Flow Rate (L/min) 1 Oxygen Delivery Method [6] Nasal Cannula Oxygen Delivery Method [5] Nasal Cannula Oxygen Delivery Method [4] Nasal Cannula Oxygen Delivery Method [3] Nasal Cannula Oxygen Delivery Method [2] Nasal Cannula Oxygen Delivery Method [1 ( Nasal Cannula Initial Baseline)] Oxygen Delivery Method Nasal Cannula Weight: 91 kg Body Mass Index (BMI) 27.9 Intake and Output for Last 24 Hours 05/01/20 05/02/20 05/03/20 23:59 23:59 23:59 Intake Total 240 / 960 720 / 1520 1200 / 1200 Balance 240 / 960 720 / 1520 1200 / 1200 General: Alert, Oriented x3 HEENT: Atraumatic Oral: Moist Mucosa Neck: Supple Lungs: Normal air movement Current Medications Acetaminophen (Acetaminophen 325 Mg Tablet) 650 mg PO Q6H PRN PRN PRN Reason: Pain Score 1-3 Last Admin: 04/30/20 23:02 Dose: 650 mg Documented by: Hydrocodone Bitart/Acetaminophen (Hydrocodone Bitartrate/Apap 5/325 Tablet) 1 tablet PO Q4H PRN PRN PRN Reason: Pain Score 4-10 Last Admin: 05/02/20 17:11 Dose: 1 tablet Documented by: Bisacodyl (Bisacodyl 5 Mg Tablet) 5 mg PO DAILY PRN PRN Reason: Constipation Cyclobenzaprine HCl (Cyclobenzaprine Hcl 10 Mg Tablet) 10 mg PO TID PRN PRN PRN Reason: MUSCLE SPASM Last Admin: 05/02/20 17:12 Dose: 10 mg Documented by: Dexamethasone (Dexamethasone 4 Mg Tablet) 6 mg PO DAILY [facility] Last Admin: 05/02/20 07:59 Dose: 6 mg Documented by: Enoxaparin Sodium (Enoxaparin 30 Mg/0.3 Ml Syringe) 30 mg SC BID [facility] Last Admin: 05/02/20 21:28 Dose: 30 mg Documented by: Lactated Ringer's () 1,000 mls @ 15 mls/hr IV .Q48H [facility] Last Admin: 05/03/20 00:41 Dose: Not Given Documented by: Sodium Chloride () 250 mls @ 15 mls/hr IV .[id number] PRN PRN Reason: Saline Flush Morphine Sulfate (Morphine 2 Mg/Ml Syringe) 2 mg IV Q2H PRN PRN PRN Reason: Pain Score 6-10 Last Admin: 05/02/20 15:09 Dose: 2 mg Documented by: Sodium Chloride (0.9% Saline Lock 10 Ml Syringe) 10 - 40 ml IV UD PRN PRN Reason: SALINE FLUSH Last Admin: 05/02/20 15:10 Dose: 10 ml Documented by: Medical Necessity - Tobacco Use Smoking Status: Never smoker Tobacco Use: Non-smoker Assessment/Plan Impression: right pneumothorax COVID Discussion/Plan: CXR this morning looks the best since patient has been admitted, will await radiology reading but I suspect that the pneumothorax is resolved If radiology reading confirms this, will place atrium to water seal and repeat CXR around noon and if OK, will then d/c pleural catheter
[2020-05-03 08:31] VITALS: BP 129/61; PULSE 70; RESP 18; TEMP 36.7; O2SAT 100
--- NOTE | 2020-05-03 09:46 | CASEMGMT ---
RN CM Assessment Note Introduced role of CM to patient via phone to room. Demographics, PCP verified. The patient states he is independent and no concerns re: dc. Presentation: pleuritic pain Diagnosis: COVID 19, pneumothorax PCP: Dr. Mcgowan Specialists: Dr. Barnes, Dr. Rashid Insurance: [employer] Preferred Pharmacy: [facility] Benefit: yes LNOK: parents Living Arrangements: Lives independently Tranportation: drives DME: none Patient DC Goals: Home DC Plan: Home CM available for discharge planning coordination. Contact CM for any concerns/needs that may arise. Marissa LOZAN RN ACM
--- NOTE | 2020-05-03 10:13 | PCM.CONS.PUL ---
Problem List (1) Secondary spontaneous pneumothorax Status: Acute (2) COVID-19 Status: Acute Reason for Consult Date of Consultation: 05/03/20 Reason for Consultation: Pneumothorax History of Present Illness: The patient is a 24 year old M, with no reported past medical history, who presented to [facility] on 04/30/2020 secondary to right-sided chest pain, congestion and increasing shortness of breath. Patient reportedly was diagnosed with coronavirus approximately 4 days prior to presentation. Patient had reported having symptoms 7 days prior to the testing. Patient had been noting some increasing shortness of breath on exertion, but had a right-sided chest pain that was sharp in nature. Patient denied any nausea, vomiting, abdominal pain or lower extremity edema. No diaphoresis or syncope has been reported. Patient denied any trauma. In ER, patient was slightly hypertensive at 139/91, but afebrile and saturating well on room air. Chest x-ray had showed a moderate right pneumothorax without tension physiology. EKG was relatively unremarkable. In the ER, patient had a chest tube placed and was admitted to the floor for further evaluation. Since being in the hospital, patient has continued to be on suction until this morning. Patient states his symptoms have improved outside of the sharp chest pain that is intermittent. Patient denies any current dyspnea, nausea or vomiting. Patient is not reporting any previous pulmonary history. Patient has never been told he has asthma or COPD. Patient does report intermittent social smoking, but no consistent habit. Patient does drink on the weekends. 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 Patient is in trauma. Patient denies any history of rib fractures, but does report significant cough associated with COVID-19. Patient is not reporting any family history of early COPD, liver problems or spontaneous pneumothorax. Review of systems otherwise negative from a constitutional, HEENT, respiratory, cardiovascular, GI, genitourinary, musculoskeletal, skin, neurologic, psychiatric and hematologic system unless stated above. Past Medical History Allergies No Known Allergies Allergy (Verified 04/30/20 18:57) Home Medications: Ambulatory Orders Medication Instructions Recorded NK 04/30/20 Surgical History: no surgical history Psychiatric History: No pertinent psych hx Lives: With Family Smoking Status: Never smoker Tobacco Use: Non-smoker Alcohol: None Drugs: None Review of Systems Comment: See HPI Objective: All imaging was personally reviewed. Morning x-ray shows resolution of pneumothorax and good position of chest tube. - Physical Exam Vitals/I&O's: Vital Signs Temp Pulse Resp BP Pulse Ox 36.7 C 70 18 129/61 H 100 05/03/20 08:31 05/03/20 08:31 05/03/20 08:31 05/03/20 08:31 05/03/20 08:31 Oxygen Flow Rate (L/min) [6] 2 Oxygen Flow Rate (L/min) [5] 2 Oxygen Flow Rate (L/min) [4] 2 Oxygen Flow Rate (L/min) [3] 2 Oxygen Flow Rate (L/min) [2] 2 Oxygen Flow Rate (L/min) [1 ( 2 Initial Baseline)] Oxygen Flow Rate (L/min) 1 Oxygen Delivery Method [6] Nasal Cannula Oxygen Delivery Method [5] Nasal Cannula Oxygen Delivery Method [4] Nasal Cannula Oxygen Delivery Method [3] Nasal Cannula Oxygen Delivery Method [2] Nasal Cannula Oxygen Delivery Method [1 ( Nasal Cannula Initial Baseline)] Oxygen Delivery Method Nasal Cannula Weight: 91 kg Body Mass Index (BMI) 27.9 Intake and Output for Last 24 Hours 05/01/20 05/02/20 05/03/20 23:59 23:59 23:59 Intake Total 240 / 960 720 / 1520 1200 / 1200 Balance 240 / 960 720 / 1520 1200 / 1200 General: Alert, Oriented x3 HEENT: Atraumatic, PERRLA, EOMI, Normocephalic Oral: Moist Mucosa, No Gingival or Mucosal Lesions/ Ulcerations Neck: Supple, No JVD, Negative Carotid Bruits Lungs: Clear to auscultation, Normal air movement, No rhonchi, No wheeze, No rales Cardiovascular: Regular rate, Regular Rhythm, Normal S1, Normal S2, No murmurs, No rub noted, No Gallop Abdomen: Bowel Sounds Present, Soft, Non Tender Extremities: No edema, Capillary Refill Less than 3 Seconds Skin: No rashes, No breakdown Musculoskeletal: No Tenderness to Palpation of Joints or Extremities Neurological: Cranial nerves II-XII grossly intact Psych/Mental Status: Normal Affect, Appropriate Current Medications Acetaminophen (Acetaminophen 325 Mg Tablet) 650 mg PO Q6H PRN PRN PRN Reason: Pain Score 1-3 Last Admin: 04/30/20 23:02 Dose: 650 mg Documented by: Hydrocodone Bitart/Acetaminophen (Hydrocodone Bitartrate/Apap 5/325 Tablet) 1 tablet PO Q4H PRN PRN PRN Reason: Pain Score 4-10 Last Admin: 05/02/20 17:11 Dose: 1 tablet Documented by: Bisacodyl (Bisacodyl 5 Mg Tablet) 5 mg PO DAILY PRN PRN Reason: Constipation Cyclobenzaprine HCl (Cyclobenzaprine Hcl 10 Mg Tablet) 10 mg PO TID PRN PRN PRN Reason: MUSCLE SPASM Last Admin: 05/02/20 17:12 Dose: 10 mg Documented by: Dexamethasone (Dexamethasone 4 Mg Tablet) 6 mg PO DAILY [facility] Last Admin: 05/02/20 07:59 Dose: 6 mg Documented by: Enoxaparin Sodium (Enoxaparin 30 Mg/0.3 Ml Syringe) 30 mg SC BID [facility] Last Admin: 05/02/20 21:28 Dose: 30 mg Documented by: Lactated Ringer's () 1,000 mls @ 15 mls/hr IV .Q48H [facility] Last Admin: 05/03/20 00:41 Dose: Not Given Documented by: Sodium Chloride () 250 mls @ 15 mls/hr IV .[id number] PRN PRN Reason: Saline Flush Morphine Sulfate (Morphine 2 Mg/Ml Syringe) 2 mg IV Q2H PRN PRN PRN Reason: Pain Score 6-10 Last Admin: 05/02/20 15:09 Dose: 2 mg Documented by: Sodium Chloride (0.9% Saline Lock 10 Ml Syringe) 10 - 40 ml IV UD PRN PRN Reason: SALINE FLUSH Last Admin: 05/02/20 15:10 Dose: 10 ml Documented by: Clinical Impression(s) from Imaging Studies Chest X-Ray 04/30/20 19:28 IMPRESSION: 1. Moderate right pneumothorax, no tension. 2. Possibly viral pneumonia and/or atelectasis in the bases. Electronically Signed: Martha Barnett MD at 19:48 EST Tel , Service support , ADDENDUM: 04/30/202005 IMPRESSION: 1. Moderate right pneumothorax, no tension. 2. Possibly viral pneumonia and/or atelectasis in the bases. N.B. : The above information has been verbally conveyed by Martha Barnett MD to Dr Sukhdev MD, on 04/30/2020 19:59:57 (ET). Electronically Signed: Martha Barnett MD at 19:48 EST Tel , Service support , Chest X-Ray 04/30/20 21:06 IMPRESSION: Despite the presence of a small caliber right-sided chest tube, a previously noted right pneumothorax is increased in size since the previous study. N.B. : The above information has been verbally conveyed by Wicho Hill MD to FLAVIO Blake MD, on 04/30/2020 21:18:38 (ET). Electronically Signed: Wicho Hill MD at 21:19 EST , Service support , ADDENDUM: 04/30/202125 IMPRESSION: Despite the presence of a small caliber right-sided chest tube, a previously noted right pneumothorax is increased in size since the previous study. N.B. : The above information has been verbally conveyed by Wicho Hill MD to FLAVIO Blake MD, on 04/30/2020 21:18:38 (ET). Electronically Signed: Wicho Hill MD at 21:19 EST , Service support , Chest X-Ray 04/30/20 21:30 IMPRESSION: Persistent though decreased in size right pneumothorax Electronically Signed: Wicho Hill MD at 21:53 EST , Service support , Chest X-Ray 05/01/20 05:55 IMPRESSION: Decreased size of the right-sided pneumothorax. Electronically Signed: Terrie Waters MD at 8:06 EST , Service support , Chest X-Ray 05/01/20 12:35 IMPRESSION: Small stable right apical pneumothorax and chest tube as above. Electronically Signed: Jacob Pierce MD at 19:35 EST , Service support , Chest X-Ray 05/02/20 05:55 IMPRESSION: No change in right-sided small bore thoracostomy tube with small apical pneumothorax. Electronically Signed: Bill Delgado MD at 8:35 EST Tel , Service support , Chest X-Ray 05/02/20 09:15 IMPRESSION: No change in right-sided small bore thoracostomy tube with a small apical pneumothorax. Electronically Signed: Bill Delgado MD at 9:39 EST Tel , Service support , Chest X-Ray 05/02/20 12:16 IMPRESSION: Insertion of a small caliber right-sided chest tube, previously noted right apical pneumothorax has either resolved or nearly completely resolved. No superimposed acute pulmonary process Electronically Signed: Wicho Hill MD at 13:04 EST , Service support , Chest X-Ray 05/03/20 05:55 IMPRESSION: Small caliber chest tube is seen with the tip in the right lateral lung apex. There is no evidence of pneumothorax. Electronically Signed: Jose Alexandra MD at 8:15 EST , Service support , Assessment/Plan All Active Problems Secondary spontaneous pneumothorax (Acute) COVID-19 (Acute) RECOMMENDATIONS: 1. Chest tube management per general surgery 2. Anticipate outpatient work-up for early spontaneous pneumo 3. Outpatient complete PFT in [address] scan and alpha-1 antitrypsin testing 5. Follow-up with nurse practitioner 2 weeks after discharge with chest x-ray prior to visit IMPRESSIONS: 1. Spontaneous pneumothorax in the setting of COVID-19 pneumonia Unclear exact etiology of spontaneous pneumothorax. Clinical suspicion for an element of a greenstick fracture of a rib leading to current condition. Other considerations would be subpleural emphysema, alpha-1 antitrypsin deficiency or asthma with increased intrathoracic pressures. Patient does not appear to have a pneumomediastinum leading to current findings. Patient has responded well to chest tube. Anticipate CT scan and alpha-1 antitrypsin testing after follow-up with nurse practitioner in 2 weeks. Patient will have to wait at least 3 months before having a pulmonary function test to evaluate for asthma as strenuous activity could lead to recurrence of the pneumothorax. 2. Intermittent smoking Unclear patient has an element of asthma underlying. Did stress to the patient that alpha-1 antitrypsin deficiency would be a consideration and this would imply complete smoking cessation. Patient states that he is done with cigarette smoking. Inpatient E&M: 59607 Init Hosp L2
[2020-05-03] MEDS: dexAMETHasone 4 MG Tablet 6 MG PO (11:01)
[2020-05-03] MEDS: Enoxaparin 30 MG/0.3 ML Syringe SC (11:02)
[2020-05-03] MEDS: 0.9% Saline Lock 10 ML Syringe IV (11:05)
--- NOTE | 2020-05-03 12:05 | RAD_ITS ---
STUDY: X-RAY CHEST REASON FOR EXAM: Male, 24 years old. Chest pain, possible pneumothorax TECHNIQUE: Single AP portable view of the chest. COMPARISON: 05/03/2020 FINDINGS: Stable appearance of a small-caliber chest tube in the right apex. No demonstrated pneumothorax. The lungs are clear and expanded. There is no demonstrated pleural abnormality. Normal size heart. Normal mediastinum and umm. Normal visualized pulmonary arteries. Normal visualized aortic arch and descending thoracic aorta. Normal visualized thoracic spine. Normal visualized ribs, clavicles, and shoulders. There is no demonstrated abnormality of the visualized soft tissue structures of the upper abdomen. RAD/Chest 1 View (Portable) IMPRESSION: No acute pulmonary process, no pneumothorax identified. Stable appearance of a small caliber chest tube in the right apex Electronically Signed: Wicho Hill MD at 12:52 EST , Service support ,
--- NOTE | 2020-05-03 13:16 | DCINST_ITS ---
- Discharge Diagnoses Current Active Problems: Current Active and Chronic Problems Secondary spontaneous pneumothorax (Acute) COVID-19 (Acute) You will use the following diet at home:: Regular Your food should be the consistency of: Regular Discharge Activity: Return to Normal Activity Weight Bearing Status: Full weight bearing Call your doctor if you observe: Fever of 101 or Higher, Shortness of breath, Dizziness, Fainting spells, Chest pain, Increased palpitations (irregular heartbeat), Uncontrolled pain Additional Instructions: Use [id number] Tylenol or Aleve as needed for pain. Allergies/Adverse Reactions: Allergies No Known Allergies Allergy (Verified 04/30/20 18:57) Medications to take at Discharge Dexamethasone [Decadron] 6 mg PO DAILY 7 Days #7 tab 05/03/20 The following prescriptions were given: Dexamethasone [Decadron] 6 mg PO DAILY 7 Days #7 tab Transmission Status: Pending to [id number] Primary Care Physician: Yaya Mcgowan MD [Primary Care Provider] - Please follow up with your Primary Care Physician in: 1 week. Test Results: Test results from this visit will be discussed in further detail at your follow- up appointment, if applicable.
--- NOTE | 2020-05-03 13:19 | PCM.PROGNOTE ---
Patient Problems: Active and Suspected Problems Secondary spontaneous pneumothorax (Acute) COVID-19 (Acute) Subjective: Chief complaint: Follow-up after admission for acute right spontaneous pneumothorax and acute bilateral COVID-19 pneumonia. Patient seen and examined. No acute events overnight. Today, is feeling better, no shortness of breath. He has been having some chest discomfort at the tube insertion site. He has been off oxygen, vital signs are stable. Repeat chest x-ray revealed resolution of the right pneumothorax. - Physical Exam Vitals/I&O's: Vital Signs Temp Pulse Resp BP Pulse Ox 98.1 F 70 18 129/61 H 100 05/03/20 08:31 05/03/20 08:31 05/03/20 08:31 05/03/20 08:31 05/03/20 08:31 Oxygen Flow Rate (L/min) [6] 2 Oxygen Flow Rate (L/min) [5] 2 Oxygen Flow Rate (L/min) [4] 2 Oxygen Flow Rate (L/min) [3] 2 Oxygen Flow Rate (L/min) [2] 2 Oxygen Flow Rate (L/min) [1 ( 2 Initial Baseline)] Oxygen Flow Rate (L/min) 1 Oxygen Delivery Method [6] Nasal Cannula Oxygen Delivery Method [5] Nasal Cannula Oxygen Delivery Method [4] Nasal Cannula Oxygen Delivery Method [3] Nasal Cannula Oxygen Delivery Method [2] Nasal Cannula Oxygen Delivery Method [1 ( Nasal Cannula Initial Baseline)] Oxygen Delivery Method Nasal Cannula Weight: 200 lb 9.93 oz Body Mass Index (BMI) 27.9 Intake and Output for Last 24 Hours 05/01/20 05/02/20 05/03/20 23:59 23:59 23:59 Intake Total 240 / 960 720 / 1520 1200 / 1200 Balance 240 / 960 720 / 1520 1200 / 1200 General: Alert, Oriented x3, Cooperative, No apparent distress HEENT: Atraumatic, PERRLA, Normocephalic Oral: Moist Mucosa, No Gingival or Mucosal Lesions/ Ulcerations Neck: Supple, No JVD, Negative Carotid Bruits, Trachea Midline, Thyroid Normal Size and Texture Lungs: Clear to auscultation, Normal air movement, No rhonchi, No wheeze, No rales, Rhonchi Cardiovascular: Regular rate, Regular Rhythm, Normal S1, Normal S2, PMI Normal Abdomen: Bowel Sounds Present, Soft, Non Tender, Non-Distended, No Hepato-splenomegaly Extremities: No clubbing, No cyanosis, No edema Skin: No rashes, No breakdown Lymphatic: No Cervical, Supraclavicular, or Inguinal Adenopathy Neurological: Cranial nerves II-XII grossly intact, Neuro grossly intact Psych/Mental Status: Normal Affect, Appropriate, Alert and oriented to time, place, person, mood and affect Clinical Impression(s) from Imaging Studies Chest X-Ray 05/03/20 05:55 IMPRESSION: Small caliber chest tube is seen with the tip in the right lateral lung apex. There is no evidence of pneumothorax. Electronically Signed: Jose Alexandra MD at 8:15 EST , Service support , Chest X-Ray 05/03/20 12:05 IMPRESSION: No acute pulmonary process, no pneumothorax identified. Stable appearance of a small caliber chest tube in the right apex Electronically Signed: Wicho Hill MD at 12:52 EST , Service support , Current Medications Acetaminophen (Acetaminophen 325 Mg Tablet) 650 mg PO Q6H PRN PRN PRN Reason: Pain Score 1-3 Last Admin: 04/30/20 23:02 Dose: 650 mg Documented by: Hydrocodone Bitart/Acetaminophen (Hydrocodone Bitartrate/Apap 5/325 Tablet) 1 tablet PO Q4H PRN PRN PRN Reason: Pain Score 4-10 Last Admin: 05/02/20 17:11 Dose: 1 tablet Documented by: Bisacodyl (Bisacodyl 5 Mg Tablet) 5 mg PO DAILY PRN PRN Reason: Constipation Cyclobenzaprine HCl (Cyclobenzaprine Hcl 10 Mg Tablet) 10 mg PO TID PRN PRN PRN Reason: MUSCLE SPASM Last Admin: 05/02/20 17:12 Dose: 10 mg Documented by: Dexamethasone (Dexamethasone 4 Mg Tablet) 6 mg PO DAILY [facility] Last Admin: 05/03/20 11:01 Dose: 6 mg Documented by: Enoxaparin Sodium (Enoxaparin 30 Mg/0.3 Ml Syringe) 30 mg SC BID [facility] Last Admin: 05/03/20 11:02 Dose: 30 mg Documented by: Lactated Ringer's () 1,000 mls @ 15 mls/hr IV .Q48H [facility] Last Admin: 05/03/20 00:41 Dose: Not Given Documented by: Sodium Chloride () 250 mls @ 15 mls/hr IV .[id number] PRN PRN Reason: Saline Flush Morphine Sulfate (Morphine 2 Mg/Ml Syringe) 2 mg IV Q2H PRN PRN PRN Reason: Pain Score 6-10 Last Admin: 05/02/20 15:09 Dose: 2 mg Documented by: Sodium Chloride (0.9% Saline Lock 10 Ml Syringe) 10 - 40 ml IV UD PRN PRN Reason: SALINE FLUSH Last Admin: 05/03/20 11:05 Dose: 10 ml Documented by: Medical Necessity - Tobacco Use Smoking Status: Never smoker Tobacco Use: Non-smoker Assessment/Plan All Active Problems Secondary spontaneous pneumothorax (Acute) COVID-19 (Acute) This is a 24 years old male patient presented to the emergency room because of right-sided chest pain, found to have acute spontaneous right pneumothorax and he was diagnosed with COVID-19 few days before admission. #1 acute right spontaneous pneumothorax: Status post chest tube insertion. Repeat chest x-ray from today revealed full expansion of the right lung, no evidence of pneumothorax. Currently, patient is on under waterseal. Repeat chest x-ray again revealed no pneumothorax. Chest tube will be pulled out this afternoon. If repeat chest x-ray revealed no pneumothorax, patient can be discharged today. #2 acute bilateral COVID-19 pneumonia: He is on p.o. dexamethasone. He has been stable, no significant symptoms. He has been off oxygen today. Denied worsening shortness of breath or significant cough. He has been afebrile. His symptoms started around 7 days before this admission and he is already on his ninth day post exposure. He should be done with his isolation requirement for COVID-19. Prescription for Decadron for 7 days was sent to his pharmacy. #3 DVT prophylaxis: Subcu Lovenox twice daily. This note was generated with Stam[employer]ation software. It may contain incorrect words, spelling, and punctuation that were not noted in checking the note before signing. Inpatient E&M: [id number] Subs Hosp L2
[2020-05-03 13:23] VITALS: BP 133/75; PULSE 72; RESP 20; TEMP 36.6; O2SAT 95
--- NOTE | 2020-05-03 13:35 | RAD_ITS ---
STUDY: X-RAY CHEST REASON FOR EXAM: Male, 24 years old. CHEST TUBE REMOVAL. TECHNIQUE: Single AP portable view of the chest. COMPARISON: Comparison is made with prior examination done earlier in the day at 12:01 PM. FINDINGS: The small-caliber right-sided chest tube has been removed. The lungs are clear and expanded. There is no demonstrated pleural abnormality. No evidence of pneumothorax. Normal size heart. Normal mediastinum and umm. Normal visualized pulmonary arteries. Normal visualized aortic arch and descending thoracic aorta. Normal visualized thoracic spine. Normal visualized ribs, clavicles, and shoulders. There is no demonstrated abnormality of the visualized soft tissue structures of the upper abdomen. RAD/Chest 1 View (Portable) IMPRESSION: Status post right chest tube removal. No evidence of pneumothorax. Electronically Signed: Jose Alexandra MD at 14:09 EST , Service support ,
--- NOTE | 2020-05-03 14:58 | DS.PCM_ITS ---
Discharge Summary Date of Admission: 04/30/20 Date of Discharge: 05/03/20 Summary: Adonay Goss is an otherwise healthy WM who presented to [facility] ED on the evening of 04/30/2020 with right chest pain and worsening of shortness of breath. He was found to be positive for COVID on 04/27/2020. He was found to have a right pneumothorax. He underwent placement of right sided pleural catheter by the ED physician. He was admitted to the surgery service with consultation to internal medicine for treatment of COVID. He was placed on Atrium 20 cm suction. Pneumothorax did not resolve and therefore on 05/02/2020, another right pleural catheter was placed. Patient and his family wanted a pulmonary consultation and this was obtained. After overnight 20 cm suction of the pleural catheter, his pneumothorax completely resolved. The catheter was removed the next day and post CXR revealed no pneumothorax and he was then discharged to home. Patient Problems: Active and Suspected Problems Secondary spontaneous pneumothorax (Acute) COVID-19 (Acute) - Physical Exam Vitals/I&O's: Vital Signs Temp Pulse Resp BP Pulse Ox 97.9 F 72 20 H 133/75 H 95 05/03/20 13:23 05/03/20 13:23 05/03/20 13:23 05/03/20 13:23 05/03/20 13:23 Oxygen Flow Rate (L/min) [6] 2 Oxygen Flow Rate (L/min) [5] 2 Oxygen Flow Rate (L/min) [4] 2 Oxygen Flow Rate (L/min) [3] 2 Oxygen Flow Rate (L/min) [2] 2 Oxygen Flow Rate (L/min) [1 ( 2 Initial Baseline)] Oxygen Flow Rate (L/min) 1 Oxygen Delivery Method [6] Nasal Cannula Oxygen Delivery Method [5] Nasal Cannula Oxygen Delivery Method [4] Nasal Cannula Oxygen Delivery Method [3] Nasal Cannula Oxygen Delivery Method [2] Nasal Cannula Oxygen Delivery Method [1 ( Nasal Cannula Initial Baseline)] Oxygen Delivery Method Room Air Weight: 91 kg Body Mass Index (BMI) 27.9 Intake and Output for Last 24 Hours 05/01/20 05/02/20 05/03/20 23:59 23:59 23:59 Intake Total 240 / 960 720 / 1520 1200 / 1200 Balance 240 / 960 720 / 1520 1200 / 1200 Current Medications Acetaminophen (Acetaminophen 325 Mg Tablet) 650 mg PO Q6H PRN PRN PRN Reason: Pain Score 1-3 Last Admin: 04/30/20 23:02 Dose: 650 mg Documented by: Hydrocodone Bitart/Acetaminophen (Hydrocodone Bitartrate/Apap 5/325 Tablet) 1 tablet PO Q4H PRN PRN PRN Reason: Pain Score 4-10 Last Admin: 05/02/20 17:11 Dose: 1 tablet Documented by: Bisacodyl (Bisacodyl 5 Mg Tablet) 5 mg PO DAILY PRN PRN Reason: Constipation Cyclobenzaprine HCl (Cyclobenzaprine Hcl 10 Mg Tablet) 10 mg PO TID PRN PRN PRN Reason: MUSCLE SPASM Last Admin: 05/02/20 17:12 Dose: 10 mg Documented by: Dexamethasone (Dexamethasone 4 Mg Tablet) 6 mg PO DAILY [facility] Last Admin: 05/03/20 11:01 Dose: 6 mg Documented by: Enoxaparin Sodium (Enoxaparin 30 Mg/0.3 Ml Syringe) 30 mg SC BID [facility] Last Admin: 05/03/20 11:02 Dose: 30 mg Documented by: Lactated Ringer's () 1,000 mls @ 15 mls/hr IV .Q48H [facility] Last Admin: 05/03/20 00:41 Dose: Not Given Documented by: Sodium Chloride () 250 mls @ 15 mls/hr IV .[id number] PRN PRN Reason: Saline Flush Morphine Sulfate (Morphine 2 Mg/Ml Syringe) 2 mg IV Q2H PRN PRN PRN Reason: Pain Score 6-10 Last Admin: 05/02/20 15:09 Dose: 2 mg Documented by: Sodium Chloride (0.9% Saline Lock 10 Ml Syringe) 10 - 40 ml IV UD PRN PRN Reason: SALINE FLUSH Last Admin: 05/03/20 11:05 Dose: 10 ml Documented by:
[2020-05-03 15:30] VITALS: BP 133/75; PULSE 72; RESP 16; TEMP 36.7; O2SAT 98
== END 2020-05-03 15:55 | disposition home or self-care (01) | DRG 177 ==
LOC: ED 19:42 → MS2 05-01 07:04 → ICU 05-03 08:19
PROVIDERS: Student in an Organized Health Care Education/Training Program; Admitting Provider Surgery; Emergency Provider Emergency Medicine; PCP Family Medicine; Visit Provider Hospitalist
DX: U07.1 COVID-19 (principal); J12.82 Pneumonia due to coronavirus disease 2019; J93.12 Secondary spontaneous pneumothorax; F17.210 Nicotine dependence, cigarettes, uncomplicated
CPT/HCPCS: 71045; 80048; 83615; 84145; 85025; 85379; 86140; 93005; 99155; 99156; 99251; 99281; 99283; A4216; G0463